=== PATIENT | male | born 1975 | race Caucasian/White ===

== ENCOUNTER 2018-01-28 23:14 | Emergency (ER) | payer MEDICAID, OTHER ==
[~2018-01-28] VITALS: Ht 172.7 cm; Wt 93.0 kg
--- NOTE | 2018-01-28 23:15 | NUR ---
TO BED 12 A 42 YO MALE PATIENT BBSELF AND C/O SHORTNESS OF BREATH, PATIENT WITH HX OF COPD. PATIENT SAID HE IS USING INHALER AT HOME WITHOUT RELIEF. VSS. SKIN WARN AND DRY. AMBULATORY. PLACED ON MONITOR.
--- NOTE | 2018-01-28 23:35 | NUR ---
DR SURESH AT BEDSIDE TO EVALUATE PATIENT.
[2018-01-28] MEDS ORDERED: DEXAMETHASONE SOD PHOSPHATE 10 MG/ML VIAL ONE (23:43)
--- NOTE | 2018-01-28 23:55 | NUR ---
ONGOING BREATHING TREATMENT BY RT BILL.
[2018-01-28] MEDS ORDERED: ALBUTEROL FS 2.5 MG/0.5 ML VIAL.NEB ONE (23:56)
[2018-01-29] MEDS ORDERED: DEXAMETHASONE SOD PHOSPHATE 4 MG/ML VIAL IM ONE
[2018-01-29] MEDS ORDERED: ALBUTEROL FS 2.5 MG/0.5 ML VIAL.NEB NEB ONE
--- NOTE | 2018-01-29 00:44 | NUR ---
Patient reports relief from sob. Patient discharged to home in stable condition. Written and verbal after care instructions given. Patient verbalizes understanding of instruction. Patient is ambulatory with steady giat, vss. nad noted. no futher complaints.
[2018-01-29 00:45] VITALS: BP 136/77
== END 2018-01-29 00:45 | disposition home or self-care (01) ==
LOC: ER 23:18
DX: J44.9 Chronic obstructive pulmonary disease, unspecified (principal); F41.9 Anxiety disorder, unspecified; F32.9 Major depressive disorder, single episode, unspecified
CPT/HCPCS: 71045-TC; A4606; J1100; Z7610